=== PATIENT | female | born 2000 | race Caucasian/White ===

== ENCOUNTER → 2020-10-17 15:28 | Outpatient (CLI) | payer OTHER, SELFPAY ==
[2020-10-17 17:21] LABS: COVID19 -Nasal RAPID Negative (Negative)
== END ==
PROVIDERS: Visit Provider Nurse Practitioner
DX: Z20.822 Contact with and (suspected) exposure to COVID-19 (principal)
CPT/HCPCS: 87635

== ENCOUNTER → 2020-11-30 16:47 | Outpatient (CLI) | payer OTHER, SELFPAY | PROVIDERS: Visit Provider Physician Assistant | DX: N89.8 Other specified noninflammatory disorders of vagina (principal) | CPT/HCPCS: 87210 ==

== ENCOUNTER → 2020-12-11 15:57 | Outpatient (CLI) | payer OTHER, SELFPAY ==
[2020-12-11 16:14] LABS: Appearance Urine UA CLEAR; Bilirubin Urine UA NEGATIVE (NEGATIVE); Color Urine UA YELLOW; Glucose Urine UA NEGATIVE (Negative); Ketones Urine UA NEGATIVE (NEGATIVE); Leukocyte Esterase Urine UA TRACE (NEGATIVE); Nitrite Urine UA NEGATIVE (Negative); Occult Blood Urine UA 3+ (Negative); Protein Urine UA NEGATIVE (Negative); Specific Gravity Urine UA 1.015 (1.000-1.035); Urobilinogen Urine UA 0.2 E.U./dL (0.2)
[2020-12-11 16:17] LABS: Bacteria Urine None Seen
[2020-12-11 16:18] LABS: RBC Urine 5-10/HPF (0-5/HPF); Squamous Epithelial Cell Urine 5-10 /HPF (0-5/HPF); WBC Urine 0-1/HPF (0-5/HPF)
[2020-12-11 16:19] LABS: Culture Indicated Urine Cult Not Indicated
[2020-12-11 16:25] LABS: Add Manual Diff / Slide Review NO; Basophils Absolute Auto 0 /uL (0-100); Basophils Percent Auto 0.4 % (0-2); Eosinophils Absolute Auto 100 /uL (0-450); Eosinophils Percent Auto 1.2 % (2-4); Hematocrit 41.6 % (36-46); Hemoglobin 13.9 g/dL (12.0-16.0); Lymphocytes Absolute Auto 2500 /uL (1100-4500); Lymphocytes Percent Auto 31.3 % (25-40); Mean Corpuscular HGB Conc 33.3 % (30-36); Mean Corpuscular Hemoglobin 29.7 PG (26-34); Mean Corpuscular Volume 89.1 fL (80-100); Monocytes Absolute Auto 500 /uL (0-900); Monocytes Percent Auto 6.3 % (3-14); Neutrophils Absolute Auto 4900 /uL (1500-7000); Neutrophils Percent Auto 60.8 % (50-75); Platelet Count 348 X10^3/uL (150-400); Red Blood Cell Count 4.67 X10^6/uL (4.0-5.2); Red Cell Distribution Width 13.3 % (11.6-14.8)
[2020-12-11 16:27] LABS: Alanine Aminotransferase 44 IU/L (<35); Albumin 4.8 g/dL (3.5-5.0); Albumin Globulin Ratio 1.5 (1.0-2.8); Alkaline Phosphatase 39 U/L (38-126); Aspartate Aminotransferase 53 IU/L (14-36); BUN Creatinine Ratio 20.4 (6-22); Bilirubin Total 0.3 mg/dL (0.2-1.3); Blood Urea Nitrogen 11 mg/dL (7-17); Calcium 9.7 mg/dL (8.4-10.2); Carbon Dioxide 25 mmol/L (22-32); Chloride 105 mmol/L (98-107); Estimated Glomerular Filt Rate > 60.0 mL/min (>60); Globulin 3.1 g/dL (1.7-4.1); Glucose 98 mg/dL (70-100); HEMOLYSIS < 15 (0-50); Potassium 3.9 mmol/L (3.4-5.1); Sodium 140 mmol/L (137-145); Total Protein 7.9 g/dL (6.3-8.2)
[2020-12-11 16:43] LABS: Free T4, Direct Thyroxine 1.03 ng/dL (0.78-2.19)
[2020-12-11 16:56] LABS: Thyroid Stimulating Hormone 1.82 uIU/mL (0.47-4.68)
== END ==
PROVIDERS: PCP Registered Nurse; Referring Provider Registered Nurse; Visit Provider Registered Nurse
DX: R35.0 Frequency of micturition (principal); R53.83 Other fatigue
CPT/HCPCS: 36415; 80053; 81003; 81015; 84439; 84443; 85025

== ENCOUNTER → 2020-12-13 10:51 | Outpatient (CLI) | payer OTHER, SELFPAY ==
[2020-12-14 12:09] LABS: HBsAg Screen Negative (Negative); Hepatitis A Antibody IgM Negative (Negative); Hepatitis B Core Antibody IgM Negative (Negative); Hepatitis C Antibody <0.1 s/co ratio (0.0-0.9)
== END ==
PROVIDERS: PCP Registered Nurse; Referring Provider Registered Nurse; Visit Provider Registered Nurse
DX: R79.89 Other specified abnormal findings of blood chemistry (principal)
CPT/HCPCS: 36415; 80074

== ENCOUNTER → 2020-12-14 11:10 | Outpatient (CLI) | payer OTHER, SELFPAY ==
--- NOTE | 2020-12-14 11:14 | DI.US.S_ITS ---
PROCEDURE: US PELVIC COMPLETE INDICATIONS: ABDOMINAL/PELVIC CRAMPS ESPECIALLY WITH MENSES TECHNIQUE: Real-time scanning was performed of the pelvic organs, with image documentation. Additional endovaginal scanning was necessary due to incomplete visualization of the adnexal and endometrial structures by transabdominal scanning. COMPARISON: None. FINDINGS: Uterus: Uterus is normal in size at 7.6 x 4.8 x 3.6 cm. The endometrium measures 4.9 mm in combined thickness. Ovaries: Normal ovaries bilaterally measuring 4.0 x 3.2 x 2.1 cm on the right and 3.7 x 2.0 x 2.1 cm on the left. No adnexal masses seen. Other: No pathologic free abdominal or pelvic fluid. IMPRESSION: No source for pelvic pain and cramping identified. Dictated by: Bam Sanford [facility] Interpreted: Tez Lund MD on 12/14/2020 at 17:01 Approved by: Tez Lund M.D. on 12/14/2020 at 17:04
== END ==
PROVIDERS: PCP Registered Nurse; Referring Provider Registered Nurse; Visit Provider Registered Nurse
DX: R10.2 Pelvic and perineal pain (principal)
CPT/HCPCS: 76830; 76856

== ENCOUNTER → 2020-12-15 09:03 | Outpatient (CLI) | payer OTHER, SELFPAY ==
--- NOTE | 2020-12-15 09:05 | DI.US.S_ITS ---
PROCEDURE: US ABDOMEN COMPLETE INDICATIONS: ELEVATED LIVER FUNCTION TESTS TECHNIQUE: Real-time scanning was performed of the abdominal and retroperitoneal organs, with image documentation. COMPARISON: [facility], US, US PELVIC COMPLETE, 12/14/2020, 11:28. FINDINGS: Liver: Liver is normal in size and homogeneous in echotexture. Gallbladder: Nondilated. No stones or sludge. Normal gallbladder wall thickness. No pericholecystic fluid. Negative sonographic Patterson's sign. Biliary ducts: Intrahepatic bile ducts are non-dilated. Extrahepatic bile duct caliber measures 3 mm. Normal is 6-7 mm or less in diameter, or 10 mm or less post-cholecystectomy. Pancreas: Visualized portions of the pancreas are sonographically normal. Spleen: Spleen is normal in size and homogeneous in echotexture. Kidneys: Kidneys are normal in size and echotexture. Right kidney measures 11.4 cm long; left kidney measures 11 cm long. No hydronephrosis or nephrolithiasis. No solid masses. Aorta: Visualized aorta is normal in caliber at less than 3 cm. Iliacs: Proximal common iliac arteries are normal in caliber at less than 2.5 cm. IVC: Intrahepatic inferior vena cava is patent. Miscellaneous: No free abdominal fluid. IMPRESSION: 1. Normal sonographic appearance of the liver. 2. No gallstones. 3. No biliary ductal dilatation. Dictated by: Lennox Cardoza M.D. on 12/15/2020 at 10:14 Approved by: Lennox Cardoza M.D. on 12/15/2020 at 10:16
== END ==
PROVIDERS: PCP Registered Nurse; Referring Provider Registered Nurse; Visit Provider Registered Nurse
DX: R94.5 Abnormal results of liver function studies (principal)
CPT/HCPCS: 76700

== ENCOUNTER → 2020-12-20 11:25 | Outpatient (CLI) | payer OTHER, SELFPAY ==
[2020-12-20 12:08] LABS: Erythrocyte Sedimentation Rate 1 MM/HR (0-20)
[2020-12-20 14:53] LABS: C-Reactive Protein Quant < 0.5 mg/dL (<1.0)
[2020-12-22 15:27] LABS: ANA Screen, IFA Negative (.)
[2020-12-22 20:09] LABS: CCP Antibodies IgG/IgA 9 units (0-19)
[2020-12-26 19:54] LABS: Rheumatoid Factor < 8.6 IU/mL (<12.0)
== END ==
PROVIDERS: PCP Registered Nurse; Referring Provider Family Medicine; Visit Provider Family Medicine
DX: R51.9 Headache, unspecified (principal); Z82.0 Family history of epilepsy and other diseases of the nervous system
CPT/HCPCS: 36415; 85651; 86038; 86140; 86200; 86430

== ENCOUNTER → 2020-12-26 14:02 | Outpatient (CLI) | payer OTHER, SELFPAY ==
--- NOTE | 2020-12-26 14:04 | DI.MRI.S_ITS ---
PROCEDURE: MR HEAD/BRAIN WO/W CON INDICATIONS: headaches, paresthesias, Family history of MS TECHNIQUE: Noncontrast axial T1 spin echo, axial T2 fast spin echo, sagittal and axial FLAIR, coronal T2 fast spin echo, axial gradient echo, axial diffusion and ADC through the brain. After the administration of contrast, axial and coronal 3D VIBE or T1 spin echo with fat saturation through the brain. COMPARISON: None. FINDINGS: Image quality: Excellent. CSF Spaces: Basal cisterns are patent. No extra-axial fluid collections. Ventricles are normal in size and shape. Brain: No midline shift. No intracranial bleeds or masses. No abnormal intracranial enhancement. The brainstem appears normal. Diffusion-weighted images demonstrate no acute ischemic insults. No chronic ischemic insults. No abnormal GRE weighted hypodensities identified in the brain parenchyma. Normal intravascular flow voids are present. Dural sinuses demonstrate normal postcontrast enhancement. Skull and face: Calvarial marrow is normal in signal. Orbits appear normal. Sinuses: Sinuses and mastoids appear clear. IMPRESSION: 1. No intracranial disease process. 2. No abnormal intracranial mass or mass effect. 3. No suspicious postcontrast enhancement. 4. No abnormal intracranial signal. Dictated by: Holly Hernandez MD, PhD on 12/26/2020 at 17:21 Approved by: Holly Hernandez MD, PhD on 12/26/2020 at 17:24
== END ==
PROVIDERS: PCP Registered Nurse; Referring Provider Family Medicine; Visit Provider Family Medicine
DX: R51.9 Headache, unspecified (principal); R20.2 Paresthesia of skin; Z82.0 Family history of epilepsy and other diseases of the nervous system
CPT/HCPCS: 70553; A9579

== ENCOUNTER → 2021-08-02 09:03 | Outpatient (CLI) | payer OTHER, SELFPAY ==
[2021-08-02 09:48] LABS: COVID19 -Nasal RAPID Negative (Negative)
== END ==
PROVIDERS: Visit Provider Specialist
DX: Z01.812 Encounter for preprocedural laboratory examination (principal); Z20.822 Contact with and (suspected) exposure to COVID-19
CPT/HCPCS: 87635

== ENCOUNTER 2021-08-03 06:24 | Day surgery (SDC) | payer OTHER, SELFPAY ==
[2021-07-27 09:22] VITALS: BMI 20.5
[2021-08-03] VITALS (7 sets, daily range): BP systolic 103–122; BP diastolic 48–77; PULSE 65–100; RESP 14–20; TEMP 36.6–37.4; O2SAT 100; BMI 20.5
--- NOTE | 2021-08-03 | PATH_ITS ---
[facility] Accession Number: [id number] . 01 Material submitted: . endometrium - ENDOMETRIAL CURETTINGS . 02 Diagnosis: Endometrial Curettings: Portions of late secretory endometrium; negative for glandular hyperplasia, cytologic atypia, or malignancy. MRV 08/07/2021 1021 Local . 02 Electronically signed: . Iraida De La Cruz MD, Pathologist NPI- [id number] . 01 Gross description: . ENDOMETRIAL CURETTINGS: Received in formalin are multiple fragment(s) of sheldon, soft tissue measuring 2.5 x 1.7 x 1.0 cm in aggregate submitted entirely in 2 cassette(s) /QBJ 08/04/2021 0838 Local . 02 Pathologist provided ICD-10: N94.10, N94.6, N92.0 . 02 CPT . 364917 Performed at: 01 [facility] [address] [facility], [place], [place] [id number] MD Estuardo Mike MD Phone: [phone] Performed at: 02 [facility] [address] [place], [place] [id number] MD Shea Laguna MD Phone: [phone]
--- NOTE | 2021-08-03 07:18 | PM.PREOP ---
Pre-operative Note COVID-19 COVID-19 status: Negative Result date/Date tested (Pos, Neg/Pending): 08/02/21 Interval Note History & Physical reviewed/Exam performed by Physician: Yes Changes to H&P: No
--- NOTE | 2021-08-03 07:38 | SUR.OPER ---
Lithotomy on padded OR bed, head on pillow, arms secured on padded arm boards at <90 degrees abduction. Legs secured in padded yellow fins stirrups.
[2021-08-03] MEDS: LACTATED RINGERS 1,000 ML 42 ML IV (07:51)
[2021-08-03] MEDS: ACETAMINOPHEN IV 1,000 MG/100 ML VIAL 400 MG IV (08:00)
[2021-08-03] MEDS: BUPIVACAINE 0.5% (PF) 30 ML, EPINEPHrine 0.15 MG INJ (08:16)
--- NOTE | 2021-08-03 08:42 | P.OP_ITS ---
Operative Date/Time/Diagnoses Date of procedure: 08/03/21 Time of procedure: 08:43 Pre-op diagnosis: Menorrhagia, dysmenorrhea, dyspareunia Post-op diagnosis: same Procedure & Clinicians Procedure: Diagnostic laparoscopy, diagnostic hysteroscopy with endometrial biopsy and placement of Mirena IUD Same procedure as scheduled: Yes Indications: Menorrhagia, dysmenorrhea, dyspareunia with family history of endometriosis Surgeon: Tatiana Bassett Click Yes if Unassisted: Yes Anesthesia Type: General Operative Notes Findings: Normal uterus, tubes, ovaries, and no internal hernias, no scar tissue, no endometriosis, normal bowel surface, normal liver edge, normal-appearing appendix. Normal endometrium with no intrauterine pathology or obvious evidence of adenomyosis. Successful placement of Mirena IUD. Closure Type: primary Specimen(s): other (Endometrial biopsy) Estimated Blood Loss (mL): 5 Blood products transfused: none Procedure in detail: Patient was brought to the operating room where she underwent general anesthesia. She was placed in low [facility] stirrups and prepped and draped in usual sterile fashion. Pulsatile stockings were in place and functional. Warming was with blankets. A single-tooth tenaculum was placed on the anterior lip of the cervix and the cervix dilated to #6 Hegar dilator. The Zumi uterine manipulator was placed and balloon inflated with 3 mL of air. The area of the incision was injected with half percent Marcaine with epinephrine. An incision was made in the umbilicus with a scalpel and the Verres needle placed in the abdomen. Confirmation of correct placement of the needle was performed by withdrawing on the syringe and then allowing fluid to fall freely through the needle. The abdomen was insufflated to 4 L of CO2. A 5 mm trocar was placed under direct visualization. The entire abdomen was examined. The CO2 was allowed to escape from the abdomen. The trochar was removed. Skin was closed with 4-0 Vicryl. Next the procedure was switched to vaginal. The Zumi was removed and the hysteroscope was placed into the uterus with a saline solution running. A endometrial curettage was performed. The Mirena IUD was placed without difficulty and the strings cut to 4 cm. Patient went to recovery room in good condition. Counts of instruments and sponges were correct. Estimated blood loss less than 5 mL. Complications: none Post-operative Condition: stable Disposition: same day surgery Plan for aftercare: Routine post laparoscopy and hysteroscopy home when awake and stable
[2021-08-03] MEDS: hydrOXYzine pamoate 25 MG CAPSULE PO (09:08)
--- NOTE | 2021-08-03 10:10 | SUR.PHASEII ---
Phase 2- met criteria for discharge. po fluids tolerated. mild cramping-denied need for pain med.wide awake and alert. vss. emotional earlier-now settled. reviewed home care instructions. copies to patient. large abdominal bandaid cdi x 1,peripad /cdi. iv out-escorted to restroom-=gait steady. dressed self. Discharged home with all paperwork/pictures/belongings by wheelchair to husbands care/car. in better spirits. Referred to Call Dr Bassett if any problems/questions/concerns. has meds at home/script all filled at home.
== END 2021-08-03 10:05 | disposition home or self-care (01) ==
PROVIDERS: Referring Provider Specialist; Visit Provider Specialist
PROC: (CPT 49320; principal; 2021-08-03 07:45)
PROC: 0UDB8ZZ Extraction of Endometrium, Via Natural or Artificial Opening Endoscopic (ICD-10-PCS; CPT 58558; 2021-08-03 07:45)
DX: N92.0 Excessive and frequent menstruation with regular cycle (principal); N94.6 Dysmenorrhea, unspecified; N94.10 Unspecified dyspareunia
CPT/HCPCS: 49320; 58558; 58300; 81025; J0131; J0171; J1100; J1885; J2250; J2405; J2704; J3010; J7298

== ENCOUNTER → 2021-08-07 12:04 | Outpatient (CLI) | payer OTHER, SELFPAY ==
[2021-08-07 12:37] LABS: Appearance Urine UA CLEAR; Bilirubin Urine UA NEGATIVE (NEGATIVE); Color Urine UA YELLOW; Glucose Urine UA NEGATIVE (Negative); Ketones Urine UA NEGATIVE (NEGATIVE); Leukocyte Esterase Urine UA TRACE (NEGATIVE); Nitrite Urine UA NEGATIVE (Negative); Occult Blood Urine UA 2+ (Negative); Protein Urine UA NEGATIVE (Negative); Urobilinogen Urine UA 0.2 E.U./dL (0.2)
[2021-08-07 12:38] LABS: pH Urine UA 6.5 (4.5-8.0)
[2021-08-07 12:45] LABS: Amorphous Sediment Urine 1+; Bacteria Urine Many (>30); RBC Urine 5-10/HPF (0-5/HPF); Squamous Epithelial Cell Urine 5-10 /HPF (0-5/HPF); WBC Urine 5-10/HPF (0-5/HPF)
[2021-08-07 12:46] LABS: Culture Indicated Urine Cult Not Indicated
== END ==
PROVIDERS: PCP Physician Assistant; Referring Provider Specialist; Visit Provider Specialist
DX: N39.0 Urinary tract infection, site not specified (principal)
CPT/HCPCS: 81003; 81015

== ENCOUNTER → 2021-12-03 11:27 | Outpatient (CLI) | payer OTHER, SELFPAY ==
[2021-12-03 14:51] LABS: COVID19 -Nasal RAPID Negative (Negative)
== END ==
PROVIDERS: PCP Physician Assistant; Visit Provider Nurse Practitioner Family
DX: Z20.822 Contact with and (suspected) exposure to COVID-19 (principal)
CPT/HCPCS: 87635; C9803

== ENCOUNTER 2021-12-05 10:18 | Day surgery (SDC) | payer OTHER, SELFPAY ==
--- NOTE | 2021-12-05 | PATH_ITS ---
[facility] Accession Number: [id number] . 01 Material submitted: . colon - RANDOM COLON BIOPSIES . 02 Diagnosis: Random Colon, Biopsies: Colonic mucosa with no diagnostic abnormality. Negative for active, chronic, and microscopic colitis. Negative for dysplasia and malignancy. . MRV 12/10/2021 1050 Local . 02 Electronically signed: . Shea Laguna MD, Pathologist NPI- [id number] . 01 Gross description: . RANDOM COLON BIOPSIES: Received in formalin are 3 fragment(s) of sheldon, soft tissue measuring 0.2 x 0.2 x 0.2 cm to 0.3 x 0.2 x 0.2 cm submitted entirely in 1 cassette(s) /MELVA 12/06/20212203 Local . 02 Pathologist provided ICD-10: R19.7 . 02 CPT . 240391 Specimen Comment: A courtesy copy of this report has been sent to [phone] Performed at: 01 [facility] Cytology [address] [facility], [place], [place] [id number] MD Estuardo Mike MD Phone: [phone] Performed at: 02 [facility] [address] [place], [place] [id number] MD Shea Laguna MD Phone: [phone]
[2021-12-05 11:57] VITALS: BP 111/78; PULSE 79; RESP 16; TEMP 36.4; O2SAT 100; BMI 20.3
[2021-12-05] MEDS: SODIUM CHLORIDE 0.9% 1,000 ML 84 ML IV (12:12)
--- NOTE | 2021-12-05 13:13 | P.HP_ITS ---
History of Present Illness History of Present Illness Date Patient Seen: 12/05/21 Chief complaint: DX COLONOSCOPY Narrative: Diarrhea and abdominal cramping Patient History Medical History (Updated 11/13/21 @ 09:25 by Tatiana Bassett MD) Depression Endometriosis Eustachian tube dysfunction Family history of alcoholism Migraines No significant medical problems PTSD (post-traumatic stress disorder) Surgical History (Updated 08/01/21 @ 21:24 by Nakita Newman) Anesthesia [place] teeth removed (~2019) Family & Social History Family History (Updated 08/01/21 @ 21:27 by Nakita Newman) Father Hypertension Mental health problem Mother Mental health problem Brother Mental health problem Grandfather Mental health problem Grandmother Mental health problem Grandfather Mental health problem Social History: household members spouse Tobacco & Substance use: Smoking Status Never smoker alcohol intake frequency holiday/special occasion Substance Use Type marijuana Meds Home Medications and Allergies Home Medications Medication Instructions Recorded Confirmed Type fluticasone propionate 50 2 spray INTRANASAL DAILY #18.2 ml 11/29/20 12/05/21 Rx mcg/actuation nasal spray,suspension (Flonase Allergy Relief) sumatriptan succinate 25 mg tablet See Rx Instructions PO .COMPLEX 12/11/20 12/05/21 Rx (Imitrex) #10 tab amitriptyline 10 mg tablet 10 mg PO DAILY 08/02/21 12/05/21 History ibuprofen 600 mg tablet 600 mg PO Q6H PRN #30 tab 08/02/21 12/05/21 Rx ondansetron 4 mg disintegrating 4 mg PO Q6H PRN #10 tab 08/02/21 12/05/21 Rx tablet Allergies Allergy/AdvReac Type Severity Reaction Status Date / Time guava Allergy Severe Anaphylaxis Verified 12/05/21 11:50 amoxicillin Allergy Unknown unknown Verified 11/13/21 09:00 clindamycin Allergy Unknown rash Verified 11/13/21 09:00 Penicillins Allergy Unknown Verified 11/13/21 09:00 paroxetine AdvReac increased Verified 11/13/21 09:00 migraines and nausea Exam Vital Signs (past 8 hours): - 12/05/21 11:57 Temperature 97.6 F Pulse Rate 79 Respiratory Rate 16 Blood Pressure 111/78 Pulse Oximetry 100 Oxygen Delivery Method Room Air Narrative Exam Narrative: Oropharynx free of lesions Chest clear to auscultation percussion Cardiac exam reveals no S3 or murmur Assessment & Plan Assessment & Plan narrative: Diarrhea and abdominal discomfort rule out underlying Crohn's disease. Risks, benefits, alternatives have been explained. Time Spent With Patient Critical Care time: I spent a total of [] minutes of critical care time on this patient's care today; this time is exclusive of procedural time.
[2021-12-05 13:15] VITALS: BP 107/61; PULSE 88; RESP 18; TEMP 36.6; O2SAT 98
--- NOTE | 2021-12-05 13:15 | PM.OP.COLON ---
Operative Date/Time/Diagnoses Date of procedure: 12/05/21 Pre-op diagnosis: See indication and findings Procedure & Clinicians Study performed: Colonoscopy Indications: Diarrhea and abdominal cramping Surgeon: Chu Clement Procedure Notes Procedure in detail: After informed consent was obtained the patient was placed in left lateral decubitus position. The video colonoscope was introduced the rectum slowly advanced cecum. On slow withdrawal mucosa was carefully examined. The scope was removed. The patient tolerated procedure well. Preparation was good. Blood loss none Complications none Sedation mac Findings 1. Normal terminal ileum 2. Normal colonoscopy to cecum. Biopsies taken to rule out underlying colitis Patient will call for follow-up it did discuss biopsies in the next week or so.
[2021-12-05 13:20] VITALS: BP 111/71; PULSE 82; RESP 16; O2SAT 100
[2021-12-05 13:25] VITALS: BP 116/73; PULSE 80; RESP 16; O2SAT 99
[2021-12-05 13:30] VITALS: BP 115/71; PULSE 80; RESP 18; O2SAT 99
[2021-12-05 13:45] VITALS: BP 112/75; PULSE 82; RESP 16; TEMP 37.1; O2SAT 100
== END 2021-12-05 14:05 | disposition home or self-care (01) ==
PROVIDERS: PCP Physician Assistant; Referring Provider Internal Medicine Gastroenterology; Visit Provider Internal Medicine Gastroenterology
PROC: 0DJD8ZZ Inspection of Lower Intestinal Tract, Via Natural or Artificial Opening Endoscopic (ICD-10-PCS; CPT 45378; principal; 2021-12-05 12:30)
DX: R19.7 Diarrhea, unspecified (principal); R10.9 Unspecified abdominal pain; F41.9 Anxiety disorder, unspecified; F32.9 Major depressive disorder, single episode, unspecified
CPT/HCPCS: 45380; J2250; J2704

== ENCOUNTER 2022-02-12 13:38 | Emergency (ER) | payer OTHER, SELFPAY ==
[2022-02-12 13:53] VITALS: BP 120/87; PULSE 74; RESP 14; TEMP 37.7; O2SAT 97; BMI 21.2
--- NOTE | 2022-02-12 13:56 | DI.US.S_ITS ---
PROCEDURE: US OB <= 14 WEEKS FETUS INDICATIONS: BLEEDING WITH EARLY OUTSIDE/PRIOR DATING DATA: Last menstrual period (LMP): 01/09/2022. First dating scan (date and location): 02/12/2022. TECHNIQUE: Real-time scanning was performed of the fetus and maternal pelvic organs, with image documentation. Endovaginal scanning was also performed to better visualize the fetus and maternal ovaries. COMPARISON: None. FINDINGS: Embryo: No intrauterine gestational sac. Maternal organs: Ovaries are within normal limits. Right ovary measures 2.7 x 2 x 2 cm. Left ovary measures 3.7 x 2.7 x 1.7 cm. No free fluid. Uterus measures 8.4 x 4.5 x 4.1 cm. Endometrium measures 1 cm in thickness. IMPRESSION: of uncertain location. No intrauterine gestational sac. No ectopic identified. Recommend trending beta hCG and short-term follow-up pelvic ultrasound if clinically indicated. We strive to produce accurate, complete, and clear reports of imaging services. To assist us in improving patient care, this report was composed using standard report templates and voice recognition software. Therefore, it may contain abnormal punctuation, insertions and/or omissions. Occasional wrong-word or sound-alike substitutions may occur. Though we review the report and make efforts to correct it, we do recommend that the report be read carefully in proper context to recognize any text inaccuracies. Dictated by: Lennox Cardoza M.D. on 02/12/2022 at 15:16 Approved by: Lennox Cardoza M.D. on 02/12/2022 at 15:20
[2022-02-12 14:19] LABS: Bacteria Urine None Seen; Culture Indicated Urine Cult Not Indicated; RBC Urine 1-5/HPF (0-5/HPF); WBC Urine None Seen (0-5/HPF)
[2022-02-12 14:21] LABS: Add Manual Diff / Slide Review NO; Basophils Absolute Auto 100 /uL (0-100); Basophils Percent Auto 0.7 % (0-2); Eosinophils Absolute Auto 100 /uL (0-450); Eosinophils Percent Auto 1.2 % (2-4); Hematocrit 38.5 % (36-46); Hemoglobin 13.3 g/dL (12.0-16.0); Lymphocytes Absolute Auto 2000 /uL (1100-4500); Lymphocytes Percent Auto 23.3 % (25-40); Mean Corpuscular HGB Conc 34.6 % (30-36); Mean Corpuscular Hemoglobin 30.4 PG (26-34); Mean Corpuscular Volume 87.8 fL (80-100); Monocytes Absolute Auto 600 /uL (0-900); Monocytes Percent Auto 6.5 % (3-14); Neutrophils Absolute Auto 5800 /uL (1500-7000); Neutrophils Percent Auto 68.3 % (50-75); Platelet Count 333 X10^3/uL (150-400); Red Blood Cell Count 4.39 X10^6/uL (4.0-5.2); Red Cell Distribution Width 13.3 % (11.6-14.8); White Blood Cell Count 8.5 X10^3/uL (4.5-11.0)
[2022-02-12 14:25] LABS: Pregnancy Test Serum,Qual Positive (Negative)
[2022-02-12 14:33] LABS: Alanine Aminotransferase 13 IU/L (<35); Albumin 4.7 g/dL (3.5-5.0); Albumin Globulin Ratio 1.7 (1.0-2.8); Alkaline Phosphatase 37 U/L (38-126); Aspartate Aminotransferase 23 IU/L (14-36); BUN Creatinine Ratio 13.7 (6-22); Bilirubin Total 0.2 mg/dL (0.2-1.3); Blood Urea Nitrogen 7 mg/dL (7-17); Carbon Dioxide 24 mmol/L (22-32); Chloride 107 mmol/L (98-107); Estimated Glomerular Filt Rate > 60 mL/min (>60); Globulin 2.8 g/dL (1.7-4.1); Glucose 100 mg/dL (70-100); HEMOLYSIS < 15 (0-50); Sodium 140 mmol/L (137-145); Total Protein 7.5 g/dL (6.3-8.2)
[2022-02-12 14:48] LABS: HCG Quantitative /Beta subunit 29.1 mIU/mL
--- NOTE | 2022-02-12 17:09 | ED_ITS ---
HPI - General Chief complaint: Vaginal Bleeding Stated complaint: Possible miscarriage Time Seen by Provider: 02/12/22 17:09 Source: patient Mode of arrival: Ambulatory Limitations: no limitations History of Present Illness HPI Narrative: 21-year-old female nonsmoker is a at about 5 weeks by dates and presents with her significant other and a chief complaint of pelvic cramping and vaginal bleeding. Her last normal period was about 1 month ago. She took a few home test yesterday which were all positive. She followed up in a clinic and had a confirmatory study which was also positive. She states that earlier in the day she had some relatively intense lower pelvic cramping and had bled a fair amount and saturated a pad along with the passage of some clots but that has since slowed significantly. She denies any fever or chills. She is not dizzy nor weak or lightheaded. She denies any dysuria, frequency or urgency. Related Data Home Medications Medication Instructions Recorded Confirmed amitriptyline 10 mg tablet 10 mg PO DAILY 08/02/21 12/05/21 Previous Rx's Medication Instructions Recorded fluticasone propionate 50 2 spray INTRANASAL DAILY #18.2 ml 11/29/20 mcg/actuation nasal spray,suspension (Flonase Allergy Relief) sumatriptan succinate 25 mg tablet See Rx Instructions PO .COMPLEX 12/11/20 (Imitrex) #10 tab ibuprofen 600 mg tablet 600 mg PO Q6H PRN #30 tab 08/02/21 ondansetron 4 mg disintegrating 4 mg PO Q6H PRN #10 tab 08/02/21 tablet Allergies Allergy/AdvReac Type Severity Reaction Status Date / Time guava Allergy Severe Anaphylaxis Verified 02/12/22 13:53 amoxicillin Allergy Unknown unknown Verified 02/12/22 13:53 clindamycin Allergy Unknown rash Verified 02/12/22 13:53 Penicillins Allergy Unknown Verified 02/12/22 13:53 paroxetine AdvReac increased Verified 02/12/22 13:53 migraines and nausea Review of Systems Review of Systems Narrative: GENERAL: Denies chills, fatigue, malaise, fever, sweats. HEENT: Denies sinus pain, ear pain, sore throat, difficulty swallowing, dizziness. RESPIRATORY: Denies dyspnea, cough, wheezing, hemoptysis, sputum. CARDIOVASCULAR: Denies chest pain, palpitations, orthopnea, edema, GASTROINTESTINAL: Denies nausea, vomiting, abdominal pain, diarrhea, constipation, melena. : See HPI MUSCULOSKELETAL: denies weakness, joint pain, or bony pain SKIN: Denies rash, skin lesions, or other NEUROLOGIC: Denies weakness, headache, numbness, change in speech, confusion, seizures, incoordination. PSYCHIATRIC: No concerning psychosocial issues. 12 point review of systems is negative except for those stated above Exam Narrative Exam Narrative: GENERAL: [21] year old patient appears stated age. Well-developed patient, in mild distress. HEAD: Atraumatic. Normocephalic. EYES: Pupils equal round and reactive. Extraocular motions intact. No scleral icterus. No injection or drainage. ENT: Nose without bleeding, purulent drainage. Throat without erythema, tonsillar hypertrophy or exudate. Airway patent. NECK: Trachea midline. Non tender CARDIOVASCULAR: Regular rate and rhythm without murmurs, gallops, or rubs. RESPIRATORY: Clear to auscultation. Breath sounds equal bilaterally. No wheezes, rales, or rhonchi. GASTROINTESTINAL: Abdomen soft, non-tender, nondistended. EXTREMITIES: No edema or joint tenderness. BACK: Nontender without deformity or crepitance. No flank tenderness. NEURO: AOx3. SKIN: No rash or erythema of visible areas Initial Vital Signs Initial Vital Signs: Vital Signs Temperature 99.8 F H 02/12/22 13:53 Pulse Rate 74 02/12/22 13:53 Respiratory Rate 14 02/12/22 13:53 Blood Pressure 120/87 02/12/22 13:53 Pulse Oximetry 97 02/12/22 13:53 Course Orders Ordered: ED Orders 02/12/22 13:56 US OB <= 14 weeks fetus Stat 02/12/22 14:07 ABO RH Type Stat Complete Blood Count AUTO DIFF Stat Comprehensive Metabolic Panel Stat HCG Quantitative /Beta subunit Stat Test Serum,Qual Stat 02/12/22 14:10 Urine Microscopic Stat Vital Signs Vital signs: Vital Signs - 8 hr 02/12/22 13:53 Temperature 99.8 F H Pulse Rate 74 Respiratory Rate 14 Blood Pressure 120/87 Pulse Oximetry 97 MDM - OB/Uterine Contractions Lab Data Result diagrams: 02/12/22 14:07 02/12/22 14:07 Labs: Lab Results 02/12/22 02/12/22 02/12/22 Range/Units 14:07 14:07 14:07 WBC 8.5 (4.5-11.0) X10^3/uL RBC 4.39 (4.0-5.2) X10^6/uL Hgb 13.3 (12.0-16.0) g/dL Hct 38.5 (36-46) % MCV 87.8 (80-100) fL MCH 30.4 (26-34) PG MCHC 34.6 (30-36) % RDW 13.3 (11.6-14.8) % Plt Count 333 (150-400) X10^3/uL Neut % (Auto) 68.3 (50-75) % Lymph % (Auto) 23.3 L (25-40) % [place] % (Auto) 6.5 (3-14) % Eos % (Auto) 1.2 L (2-4) % Baso % (Auto) 0.7 (0-2) % Neut # (Auto) 5800 (0973-8119) /uL Lymph # (Auto) 2000 (1487-5921) /uL [place] # (Auto) 600 (0-900) /uL Eos # (Auto) 100 (0-450) /uL Baso # (Auto) 100 (0-100) /uL Sodium 140 (137-145) mmol/L Potassium 4.0 (3.4-5.1) mmol/L Chloride 107 (98-107) mmol/L Carbon Dioxide 24 (22-32) mmol/L BUN 7 (7-17) mg/dL Creatinine 0.51 L (0.52-1.04) mg/dL Estimated GFR > 60 (>60) mL/min BUN/Creatinine Ratio 13.7 (6-22) Glucose 100 (70-100) mg/dL Calcium 9.0 (8.4-10.2) mg/dL Total Bilirubin 0.2 (0.2-1.3) mg/dL AST 23 (14-36) IU/L ALT 13 (<35) IU/L Alkaline Phosphatase 37 L (38-126) U/L Total Protein 7.5 (6.3-8.2) g/dL Albumin 4.7 (3.5-5.0) g/dL Globulin 2.8 (1.7-4.1) g/dL Albumin/Globulin Ratio 1.7 (1.0-2.8) HCG, Quant 29.1 mIU/mL Serum , Qual (Negative) Urine RBC (0-5/HPF) Urine WBC (0-5/HPF) Urine Bacteria (None) Ur Culture Indicated? Blood Type A Positive 02/12/22 02/12/22 Range/Units 14:07 14:10 WBC (4.5-11.0) X10^3/uL RBC (4.0-5.2) X10^6/uL Hgb (12.0-16.0) g/dL Hct (36-46) % MCV (80-100) fL MCH (26-34) PG MCHC (30-36) % RDW (11.6-14.8) % Plt Count (150-400) X10^3/uL Neut % (Auto) (50-75) % Lymph % (Auto) (25-40) % [place] % (Auto) (3-14) % Eos % (Auto) (2-4) % Baso % (Auto) (0-2) % Neut # (Auto) (7604-0944) /uL Lymph # (Auto) (8836-1908) /uL [place] # (Auto) (0-900) /uL Eos # (Auto) (0-450) /uL Baso # (Auto) (0-100) /uL Sodium (137-145) mmol/L Potassium (3.4-5.1) mmol/L Chloride (98-107) mmol/L Carbon Dioxide (22-32) mmol/L BUN (7-17) mg/dL Creatinine (0.52-1.04) mg/dL Estimated GFR (>60) mL/min BUN/Creatinine Ratio (6-22) Glucose (70-100) mg/dL Calcium (8.4-10.2) mg/dL Total Bilirubin (0.2-1.3) mg/dL AST (14-36) IU/L ALT (<35) IU/L Alkaline Phosphatase (38-126) U/L Total Protein (6.3-8.2) g/dL Albumin (3.5-5.0) g/dL Globulin (1.7-4.1) g/dL Albumin/Globulin Ratio (1.0-2.8) HCG, Quant mIU/mL Serum , Qual Positive H (Negative) Urine RBC 1-5/hpf (0-5/HPF) Urine WBC None seen (0-5/HPF) Urine Bacteria None seen (None) Ur Culture Indicated? Cult not indicated Blood Type Urine Dip Bedside Urine Glucose Negative Bedside Urine Bilirubin - Negative Bedside Urine Ketone - Negative Urine Specific [place] 1.020 Bedside Urine Occult Blood +++ Bedside Urine pH 6.0 Bedside Urine Protein - Negative Bedside Urine Urobilinogen 0.2 Bedside Urine Nitrite - Negative Bedside Urine Leukocytes ++ 125 Esterase Imaging Data US - OB: Radiologist's Impression: Launch?[address] [address] Ultrasound Report Signed Patient: Mavis Lo MR#: [id number] : 2000 Acct:[id number] Age/Sex: 21 / F Date of Service: 02/12/22 Loc: ED Accession Number: [id number] ?? Procedure: US OB <= 14 weeks fetus Ordering Provider: Yobani Shaa D.O. PROCEDURE:? US OB <= 14 WEEKS FETUS ? INDICATIONS:? BLEEDING WITH EARLY ? OUTSIDE/PRIOR DATING DATA:? Last menstrual period (LMP):? 01/09/2022.? First dating scan (date and location):? 02/12/2022.? ? TECHNIQUE:? Real-time scanning was performed of the fetus and maternal pelvic organs, with image documentation.? Endovaginal scanning was also performed to better visualize the fetus and maternal ovaries.? ? COMPARISON:? None. ? FINDINGS:? ? Embryo:? No intrauterine gestational sac. ? Maternal organs:? Ovaries are within normal limits.? Right ovary measures 2.7 x 2 x 2 cm. Left ovary measures 3.7 x 2.7 x 1.7 cm.? No free fluid.? Uterus measures 8.4 x 4.5 x 4.1 cm.? Endometrium measures 1 cm in thickness. ? ? IMPRESSION:? of uncertain location. ? No intrauterine gestational sac.? No ectopic identified. ? Recommend trending beta hCG and short-term follow-up pelvic ultrasound if clinically indicated. ? We strive to produce accurate, complete, and clear reports of imaging services. To assist us in improving patient care, this report was composed using standard report templates and voice recognition software. Therefore, it may contain abnormal punctuation, insertions and/or omissions. Occasional wrong-word or sound-alike substitutions may occur. Though we review the report and make efforts to correct it, we do recommend that the report be read carefully in proper context to recognize any text inaccuracies. ? ? ? Dictated by: Lennox Cardoza M.D. on 02/12/2022 at 15:16 ? ? Approved by: Lennox Cardoza M.D. on 02/12/2022 at 15:20 ? MDM Narrative Medical decision making narrative: likely at about 4-5 weeks with some cramping and bleeding earlier today. Bleeding is significantly improved, vital signs are stable, history and physical exam are very reassuring. There is no sign of anemia, she is A positive. Quantitative hCG is still quite low and well below the discriminatory zone, ultrasound has no significant findings. I discussed at length with the patient that we need more time to help sort through the source of her bleeding, whether it be implantation bleeding, incomplete miscarriage, or even early ectopic . She was given extensive return precautions for the emergency department in also encouraged to follow closely with her OB provider to trend HCG, likely repeat ultrasound to help elucidate the underlying cause. She has had questions answered to her apparent satisfaction Discharge Plan Departure Patient Disposition: Home Clinical Impression: First trimester bleeding Instructions: DI for Vaginal Bleeding During Activity Restrictions/Additional Instructions: *You have been diagnosed with [vaginal bleeding in 1st trimester. As we discussed your hCG today 29.1 and your blood type is A POSITIVE. Your ultrasound is reassuring and there is no evidence of any abnormal findings. As we discussed we need more time to pass in order to trend what your ? number ?is doing to help make a better decision. This could be a completely normal early , bleeding associated with implantation, very early ectopic , or even early miscarriage. As we discussed, we need more time and information to help advise *What to do: *Please continue to take your regular medications as directed. [ ] New medication prescriptions sent to your pharmacy: [ ] [ ] New medication written as a paper prescription [ x] No new medications given *Please follow up with your primary care provider in 2-3 days, call for an appointment. Let them know you were seen in the Emergency Department and that we ask that you be seen in follow up. We will electronically transmit a record of today's note if your PCP is in our system *If you do not have a primary care provider please contact the [facility] Resource line at [phone]. They will ask some questions about your medical history and help get you set up with a doctor in the community. * also, as we discussed I would expect your hCG to be above the level that we would be able to effectively use ultrasound to evaluate for ectopic and about 10-14 days *Return to Emergency Department if you should have any new, worsening or co ncerning symptoms, such as [fever greater than 101 F, shaking chills, worsening pain, persistent vomiting, heavy vaginal bleeding through more than 1 pad per hour for multiple hours or other bothersome symptoms] Prescriptions: No Action fluticasone propionate [Flonase Allergy Relief] 50 mcg/actuation spray,suspension 2 spray intranasal DAILY Qty: 18.2 0RF Rx Instructions: administer into each nostril amitriptyline 10 mg tablet 10 mg PO DAILY 0RF ibuprofen 600 mg tablet 600 mg PO Q6H PRN (Reason: pain) Qty: 30 0RF Label Comments: not started yet ondansetron 4 mg tablet,disintegrating 4 mg PO Q6H PRN (Reason: nausea and vomiting) Qty: 10 0RF Label Comments: not started yet sumatriptan succinate [Imitrex] 25 mg tablet See Rx Instructions PO .COMPLEX Qty: 10 2RF Rx Instructions: take 1 tab at onset of headache; if no relief may repeat 1 tab after at least 2 hrs; max = 4 tabs/24 hr PO Referrals: Pramod Christy PA-C [Primary Care Provider] - Tatiana Bassett MD [Physician] -
[2022-02-12 17:45] VITALS: PULSE 74; RESP 18; O2SAT 100
== END 2022-02-12 17:54 | disposition home or self-care (01) ==
PROVIDERS: Emergency Provider Emergency Medicine; PCP Physician Assistant
DX: O20.9 Hemorrhage in early pregnancy, unspecified (principal); Z3A.01 Less than 8 weeks gestation of pregnancy
CPT/HCPCS: 76801; 80053; 81003; 81015; 84702; 84703; 85025; 86900; 86901; 99282; 99284

== ENCOUNTER 2022-11-27 09:48 | Outpatient (CLI) | payer OTHER, SELFPAY ==
--- NOTE | 2022-11-27 16:28 | P.TNLD_ITS ---
Visit Information Visit Information Date of evaluation: 11/27/22 Primary OB Provider: Rubi On-call OB Provider: Rita Rubi Reason for Evaluation: Yes non-stress test non-stress test reason: other (postdates) Comments/Additional reasons for admission: 21yo at 41w1d here for post-dates NST. She is feeling her baby move regularly. No vaginal bleeding, contractions, LOF. PFSH Medical History (Updated 11/27/22 @ 16:30 by Rita Rubi MD) Depression Endometriosis Eustachian tube dysfunction Family history of alcoholism Migraines No significant medical problems PTSD (post-traumatic stress disorder) Surgical History (Updated 08/01/21 @ 21:24 by Nakita Newman) Anesthesia [place] teeth removed (~2018) Family History (Updated 08/01/21 @ 21:27 by Nakita Newman) Father Hypertension Mental health problem Mother Mental health problem Brother Mental health problem Grandfather Mental health problem Grandmother Mental health problem Grandfather Mental health problem Social History household members: spouse Smoking Status: Never smoker Evaluation Evaluation Baseline heart rate: 130 Variability: Moderate (11-25) monitor accelerations: Present Monitor Decelerations: Absent Category of Tracing: Reactive Diagnosis, Plan/Disposition Final Diagnosis (1) Post-dates : Status: Acute Plan/Disposition Plan: 21yo at 41w1d here for post-dates NST. NST reactive. Scheduled for BPP later today. Needs to schedule NST with soil conservation aide. OB Disposition: home
== END 2022-11-27 11:00 | disposition home or self-care (01) ==
LOC: LABOR 10:13 → OB 11-28 13:09
PROVIDERS: PCP Physician Assistant; Referring Provider Specialist; Visit Provider Specialist
DX: O48.0 Post-term pregnancy (principal); Z3A.41 41 weeks gestation of pregnancy
CPT/HCPCS: 59025; 76819; G0378; G0379

== ENCOUNTER → 2022-11-27 16:26 | Outpatient (CLI) | payer OTHER, SELFPAY ==
--- NOTE | 2022-11-27 16:28 | DI.US.S_ITS ---
PROCEDURE: US OB BIOPHYSICAL PROFILE INDICATIONS: POSTDATES OUTSIDE/PRIOR DATING DATA: Last menstrual period (LMP): Unknown. First dating scan (date and location): 04/04/2022. Estimated date of delivery (RIMA) from first dating scan: 11/20/2022. TECHNIQUE: Real-time scanning was performed of the fetus for biophysical profile, with image documentation. Endovaginal scanning: Not performed COMPARISON: [facility], , US OB > 14 WEEKS, 07/15/2022, 13:32. FINDINGS: General: A single living intrauterine gestation is present. Presentation: Vertex. Placenta: Placental position is fundal , without previa. Amniotic fluid index: 6.4 cm, normal range is 5-24 cm. Single deepest vertical pocket is 2.5 cm. heart rate: 153-178 beats per minute. estimated gestational age: 41 weeks 0 days Biophysical profile: Tone: 2 points. Movement: 2 points. Respiration: 0 points. Largest pocket of fluid: 2 points. IMPRESSION: 1. Single living intrauterine in vertex presentation. 2. Biophysical profile score 6/8. 3. Amniotic fluid index of 6.4 cm. We strive to produce accurate, complete, and clear reports of imaging services. To assist us in improving patient care, this report was composed using standard report templates and voice recognition software. Therefore, it may contain abnormal punctuation, insertions and/or omissions. Occasional wrong-word or sound-alike substitutions may occur. Though we review the report and make efforts to correct it, we do recommend that the report be read carefully in proper context to recognize any text inaccuracies. Dictated by: Gaurav Morales M.D. on 11/28/2022 at 9:35 Approved by: Gaurav Morales M.D. on 11/28/2022 at 9:45
== END ==
PROVIDERS: PCP Physician Assistant
DX: O48.0 Post-term pregnancy (principal); Z3A.41 41 weeks gestation of pregnancy
CPT/HCPCS: 76819